=== PATIENT | female | born 1955 | race Caucasian/White ===

== ENCOUNTER 2017-04-25 06:40 | Inpatient (IN) | payer OTHER ==
[2017-04-24 14:01] LABS: BASOPHILS 0.5 %; BASOPHILS ABSOLUTE 0.04 10/3/uL (0.0-0.16); EOSINOPHILS 2.1 %; EOSINOPHILS ABSOLUTE 0.16 10/3/uL (0.0-0.53); HEMATOCRIT 42.1 % (36.0-48.0); HEMOGLOBIN 13.8 g/dL (12.0-16.0); IMMATURE GRANULOCYTES 0.3 %; IMMATURE GRANULOCYTES ABSOLUTE 0.02 10/3/uL (0.0-0.11); LYMPHOCYTES 46.3 %; LYMPHOCYTES ABSOLUTE 3.53 10/3/uL (0.67-4.30); MEAN CORPUS HGB CONC 32.8 g/dL (32.0-36.0); MEAN CORPUSCULAR HEMOGLOB 28.5 pg (26.0-34.0); MEAN PLATELET VOLUME 9.5 fL (9.2-13.0); MONOCYTES 3.3 %; MONOCYTES ABSOLUTE 0.25 10/3/uL (0.21-1.20); NEUTROPHILS 47.5 %; NEUTROPHILS ABSOLUTE 3.62 10/3/uL (2.02-8.40); PLATELET COUNT 394 10/3/uL (150-400); RBC DISTRIBUTION WIDTH 14.4 % (12.0-16.0); RED CELL COUNT 4.84 10/6/uL (4.0-5.6); WHITE BLOOD CELLS 7.6 10/3/uL (4.5-10.5)
[2017-04-24 14:02] LABS: MANUAL DIFF NO %
[2017-04-24 14:16] LABS: ALBUMIN 3.9 G/DL (3.5-5.0); ALKALINE PHOSPHATASE 75 U/L (45-117); BUN (BLOOD UREA NITROGEN) 16 MG/DL (6-23); CALCIUM, SERUM 9.6 MG/DL (8.5-10.4); CHLORIDE, SERUM 104 MMOL/L (96-112); CO2 (CARBON DIOXIDE) 28 MMOL/L (24-34); CREATININE 0.73 MG/DL (0.55-1.02); GFR AFRICAN AMERICAN 104 ML/MIN (>=60); GFR NON AFRICAN AMERICAN 90 ML/MIN (>=60); GLOBULIN 3.8 G/DL (2.5-4.1); GLUCOSE, SERUM 93 MG/DL (60-99); POTASSIUM, SERUM 4.1 MMOL/L (3.5-5.3); SGOT(AST) 19 U/L (5-40); SGPT(ALT) 31 U/L (5-65); SODIUM, SERUM 140 MMOL/L (135-148); TOTAL BILIRUBIN 0.6 MG/DL (0-1.2); TOTAL PROTEIN 7.7 G/DL (6.0-8.5)
--- NOTE | ~2017-04-25 | DS ---
Discharge Summary [facility] [address] [place]. [address] NAME: TOAN BAPTISTE : 57 STATUS : DIS Jossue PAT#: [id number] AGE: 61 ADM/REG DATE : 04/25/17 MR#: [id number] REPORT SERV DATE: 04/28/17 DICTATED BY: FREDERICK NEVAREZ DATE: 04/27/17 REPORT STATUS : Draft TRANSCRIBED BY: MODL DATE: 04/27/17 ADMISSION DATE: 04/25/2017 DISCHARGE DATE: 04/27/2017 DISCHARGE DIAGNOSES: 1. Uterine prolapse, incomplete. 2. Midline cystocele. 3. Rectocele. 4. Stress urinary incontinence. OPERATIVE PROCEDURES: 1. Laparoscopic-assisted vaginal hysterectomy with bilateral salpingo-oophorectomy, anterior repair and posterior repair. 2. Midurethral sling (Advantage Fit sling). 3. Cystoscopy. COMPLICATIONS: Postoperative urinary retention, resolved. SUMMARY OF HOSPITAL COURSE: This is a 61-year-old white female with symptomatic cystocele and uterine prolapse. She also had mild stress incontinence symptoms which were likely to worsen with correction of the prolapse, therefore a sling was thought to be indicated. She also had a rectocele. On the day of admission, she underwent laparoscopic-assisted vaginal hysterectomy with bilateral salpingo-oophorectomy, followed by an anterior and posterior repair with placement of an Advantage Fit midurethral sling. Cystoscopy was done at the conclusion to procedure. There were no complications operatively. Postoperatively, the patient was stable in the first 24 hours. Hematocrit on the first postoperative day was 32%, bowel sounds were stable, urine output was excellent, and the patient was tolerating liquids and able to ambulate. When the catheter was removed, however, the patient was unable to void, and after voiding in catheterization with an in-and-out catheter determined she had high volumes of urine, a decision was made to replace her folly catheter. Since the patient had urinary retention requiring a Otero and did not wish to go home with indwelling Otero, she was kept for an additional 24 hours in the hospital. During that time, her diet was advanced to regular diet, she was ambulated extensively. She was given a trial without her catheter the next day, and on the postoperative day #2, she was able to void, but initially had high residual urine on in and out catheterization. By the end of the day, the patient was voiding with a residual of only around 100 mL, therefore we deemed her to have a satisfactory resolution of her urinary retention and did not reinsert a Otero, but made plans to discharge her home to be followed up in the office in about 4 days. She is given the warnings to come in should she has signs or symptoms of urinary retention. CONDITION AT DISCHARGE: Good. MEDICATIONS ON DISCHARGE: The patient will continue her usual home meds. For pain, she was given Anaprox-DS to take one q.8 hours for pain #15 and Lortab 5/325 one to two p.o. q.4 hours p.r.n. for pain, #30. In addition, she will take ferrous sulfate 325 mg b.i.d. for 30 days. She will also take Colace 100 mg twice a day or MiraLax once a day to prevent Discharge Summary [address] [address] NAME: TOAN BAPTISTE : 57 STATUS : DIS oJssue PAT#: [id number] AGE: 61 ADM/REG DATE : 04/25/17 MR#: [id number] REPORT SERV DATE: 04/28/17 DICTATED BY: FREDERICK NEVAREZ DATE: 04/27/17 REPORT STATUS : Draft TRANSCRIBED BY: LANETTE DATE: 04/27/17 constipation, and finally, she was the given the prescription for Zofran 8 mg to take one q.12 hours p.r.n. for nausea. DICTATED BY: MD KHRIS Galeas/LANETTE Frederick Nevarez MD / [id number] CC: MD Tray aGleas Jr., D.O.
--- NOTE | ~2017-04-25 | OP ---
Record Of Operation [facility] [address] [place]. [address] NAME: TOAN BAPTISTE : 57 STATUS : ADM IN PAT#: [id number] AGE: 61 ADM/REG DATE : 04/25/17 MR#: [id number] REPORT SERV DATE: 04/25/17 DICTATED BY: FREDERICK NEVAREZ DATE: 04/25/17 REPORT STATUS : Draft TRANSCRIBED BY: MODL DATE: 04/25/17 DATE OF PROCEDURE: 04/25/2017 PROCEDURES: 1. Laparoscopic-assisted vaginal hysterectomy and bilateral salpingo-oophorectomy. 2. Anterior colporrhaphy. 3. Posterior colporrhaphy. 4. Insertion of a midurethral sling. 5. Cystoscopy. PREOPERATIVE DIAGNOSES: 1. Uterine prolapse. 2. Midline cystocele. 3. Rectocele. 4. Stress urinary incontinence. POSTOPERATIVE DIAGNOSES: 1. Uterine prolapse. 2. Midline cystocele. 3. Rectocele. 4. Stress urinary incontinence. SURGEON: Frederick Nevarez M.D. ANESTHESIA: General anesthetic. FINDINGS: Under anesthesia, the patient had a grade 3 uterine prolapse with cervix at the introitus. There was grade 3 midline cystocele and grade 2 rectocele. At the time of laparoscopy, the uterus, tubes, and ovaries were essentially normal in appearance. At cystoscopy, no focal bladder lesions were seen. DESCRIPTION OF PROCEDURE: The patient was placed on the operating table in the supine position. After satisfactory general anesthesia, the patient was placed in the lithotomy in the [place] [place] [employer]. The abdomen was prepped after which the vagina and perineum were prepped and the patient was draped. I placed a MARIPOSA uterine manipulator on the uterus. The uterus sounded to 7 cm, therefore a 6-cm long intrauterine balloon catheter was chosen and the medium size MARIPOSA ring was chosen. Once the instrument was assembled, the MARIPOSA ring was sutured to the cervix at the 10 o'clock and 2 o'clock position with 0 Vicryl stitch and the balloon was inflated. Following this Otero catheter was placed in the bladder. After putting new the sterile gloves, then went to the bedside. A vertical incision was made in the inferior border of the umbilicus. Through this skin incision a Veress needle was placed into the abdominal cavity while the patient was in Trendelenburg position. After checking for proper positioning, the various needle was removed after insufflating the abdomen with 2.5 L of carbon-dioxide gas. A 5 mm disposable trocar was inserted through the umbilicus into the abdominal cavity without incident. The laparoscope was then inserted. Two additional 5 mm trocars were inserted under direct visualization. These were placed Record Of Operation [facility] [id number] [place]. [address] NAME: TOAN BAPTISTE : 57 STATUS : ADM IN PAT#: [id number] AGE: 61 ADM/REG DATE : 04/25/17 MR#: [id number] REPORT SERV DATE: 04/25/17 DICTATED BY: FREDERICK NEVAREZ DATE: 04/25/17 REPORT STATUS : Draft TRANSCRIBED BY: LANETTE DATE: 04/25/17 approximately 10 mm to the right into the left of the midline in the lower quadrants of the abdomen below the level of the umbilicus. After placement of these trocars, I was then ready to begin the procedure. A LigaSure 5 mm blunt tip instrument was used to perform desiccation of vascular pedicles and perform the laparoscopic portion of the hysterectomy. The pelvis was surveyed and the position of the ureters identified and traced. Following this beginning on the right side the infundibulopelvic ligament was desiccated with LigaSure and divided and the broad ligament then opened anteriorly and posteriorly. The round ligament was desiccated and divided on the right and the anterior lips of broad ligament incised down over the bladder reflection. A vascular tissues were desiccated and divided and uterine artery pedicle skeletonized on the right. Attention was then turned to left side where the exact same steps were performed on the left desiccating and diving the infundibulopelvic ligament pedicle followed by opening broad ligament further desiccating and dividing the round ligament and incising the anterior peritoneum over the bladder reflection. The uterine artery pedicle was skeletonized as usual. Following this, the uterine artery pedicle was desiccate and divided on both sides. The bladder flap was now advanced off the cervix and the MARIPOSA ring could be palpated. One additional pedicle was desiccated and divided being the upper portion of the cardinal ligament complex on both sides of the cervix. Hemostasis was excellent. At this time, all the laparoscopic instruments removed. The gas was allowed to escape and the trocar sleeves left in place. We then repositioned the patient for vaginal surgery. The MARIPOSA device was removed. A tenaculum was placed on the anterior lip of the cervix and on the posterior lip of the cervix. 0.25% Marcaine with epinephrine was then infiltrated submucosally posteriorly, anteriorly, and laterally on the cervix. The posterior cul-de-sac was then entered with Mak scissors and excoriated with finger tip. The non-weighted speculum was then inserted posteriorly. Turning anteriorly a transverse incision was made on the anterior lip of the cervix at the bladder reflection and dissecting in the preoperative plane, the peritoneal cavity was entered and a right-angled retractor inserted into the peritoneal cavity anteriorly. The mucosal incisions on each side of the cervix were then connected using an incision with scalpel. Following this curved Abhijit clamps were used to clamp the uterosacral ligaments on each side and these pedicles were clamped, divided with scissors and ligated in hanging fashion with 0 Vicryl which was held with hemostats. The cardinal ligament complex was then taken on each side with curved Abhijit clamps comprising the anterior and posterior peritoneum. These pedicles were incised and then ligated in hanging fashion with 0 Vicryl. Two additional bites with curved Abhijit clamps required on both sides of the cervix to get all of the remaining attachments. These pedicles were ligated in the same fashion with 0 Vicryl suture. The uterus with both ovaries and tubes were then removed from the patient's abdomen and passed off the table. All pedicles were inspected. Uterosacral ligament pedicle was then fixed laterally to the each angle of the vagina using 0 Vicryl suture. Following this, the vaginal cuff was closed with multiple interrupted [id number] sutures and 0 Vicryl. Prior to closure of vaginal cuff, the anterior colporrhaphy was performed. This was then in the following manner. Allis clamps were placed on the mucosal edges of the anterior vaginal wall for traction and counter-traction. 0.25% Marcaine with epinephrine was infiltrated submucosally in the midline. Metzenbaum scissors were then used to undermine the anterior vaginal mucosa in the midline from the vaginal apex all the way to the junction of the bladder and urethra. The mucosa was incised in the midline and reflected off the underlying bladder using sharp dissection. Once this had been laterally mobilized, an anterior colporrhaphy was performed in traditional fashion Record Of Operation [facility] [address] [place]. [address] NAME: TOAN BAPTISTE : 57 STATUS : ADM IN PAT#: [id number] AGE: 61 ADM/REG DATE : 04/25/17 MR#: [id number] REPORT SERV DATE: 04/25/17 DICTATED BY: FREDERICK NEVAREZ DATE: 04/25/17 REPORT STATUS : Draft TRANSCRIBED BY: LANETTE DATE: 04/25/17 using interrupted 2-0 Vicryl sutures beginning at the ureterovesical junction and proceeding back toward the vaginal apex. Once the anterior repair had been completed, excess vaginal mucosa was trimmed, then anterior vaginal mucosa was closed with running 3-0 Vicryl suture. At this point, the vaginal cuff was actually closed. Turning posteriorly, the perineal body and the mucosa along the posterior vaginal wall was infiltrated with 0.25% Marcaine with epi. A vertical incision was made in the perineal body due to some old scar tissue and using Allis clamps for traction and counter traction, the posterior vaginal mucosa was undermined in the midline and then trapped in the midline from the introitus all the way to vaginal apex. The posterior vaginal mucosa was reflected off the rectocele far laterally on the right and the left with sharp dissection. One brisk bleeding vessel was encountered on the patient's left side which required suture ligation with 3-0 Vicryl. The posterior colporrhaphy was then performed with interrupted sutures of 2-0 Vicryl beginning at the vaginal apex with interrupted sutures and continuing all the away to the introitus repairing the posterior wall defect in traditional fashion. The perineal body was then repaired with several interrupted sutures of 2-0 Vicryl. The posterior vaginal mucosa was repaired with running 3-0 Vicryl suture and the perineal skin was approximated using running subcuticular 3-0 Vicryl which was tied to the 3-0 Vicryl stitch to complete the procedure. Vaginal packing was obtained, but not placed at this time. Attention was then turned to the sling. A mucosal incision about 1.5 cm long was made over the midurethral section of the urethra. Using scissors, a plane was developed on each side of the urethra for placement of the sling. An Advantage Fit sling kit was obtained. A trocar was passed on the patient's left side from a vaginal incision retropubically and exited through a small stab wound suprapubically. The trocar was then placed on the patient's right side and the sling material taken up behind the symphysis pubis all the way to the abdominal wall and again exited through a small stab incision. The guides were left in place. All the Otero catheters were removed and cystoscopy was performed demonstrating a normal-appearing bladder with no injury. Following this, the Otero catheter was reinserted and the sling was then pulled up into proper position. The sling sheath was then cut and the sheath pulled off the sling while holding an instrument between the urethra and the sling material, so it would be place without tension. Once sling material was placed in the proper position without tension, the excess material sticking above the abdominal wounds was excised. The mucosal defect of the midurethra was then closed with a running 3-0 Vicryl. A vaginal packing was then placed. At this time, put on the new gloves and went to bedside where the abdomen the abdomen was insufflated, and all the pedicles checked. Irrigation was performed to clear hemostasis with all pedicles perfect. The instruments were then removed from the abdominal cavity, the gas was allowed to escape, and all trocar sleeves were removed. The skin at the trocar incision sites was closed with interrupted subcuticular 4-0 Vicryl. The suprapubic incisions where sling had been placed were also closed with interrupted subcuticular 4-0 Vicryl. Steri-Strips were applied followed by Telfa and Tegaderm. The patient was then returned to supine position. Sponge and needle counts were correct. Vaginal packing was left in place. The Otero was draining clear urine. The estimated blood loss was 300 mL. The patient was awakened from general anesthesia and transferred to recovery in good condition. [facility] Record Of Operation [address] [address] NAME: TOAN BAPTISTE : 57 STATUS : ADM IN [facility]#: [id number] AGE: 61 ADM/REG DATE : 04/25/17 MR#: [id number] REPORT SERV DATE: 04/25/17 DICTATED BY: FREDERICK NEVAREZ DATE: 06/13/17 REPORT STATUS : Draft TRANSCRIBED BY: MODL DATE: 04/25/17 Frederick Nevarez MD / [id number] CC: MD Tray Galeas Jr., D.OVish
[~2017-04-25 06:40] MED LIST: BENICAR HCT1 TA1 PO; KLONO5 PO; LEXAPRO20 PO; PROTONIX PO
[2017-04-26 05:23] LABS: HEMATOCRIT 32.1 % (36.0-48.0); HEMOGLOBIN 10.6 g/dL (12.0-16.0)
[2017-04-27 08:03] LABS: HEMATOCRIT 30.5 % (36.0-48.0); HEMOGLOBIN 9.9 g/dL (12.0-16.0)
[2017-04-27] MEDS ORDERED: T PO (14:39)
[2017-04-27] MEDS ORDERED: DSS PO (16:28)
[2017-04-27] MEDS ORDERED: FERROUS SULF325 M1 PO (16:28)
[2017-04-27] MEDS ORDERED: ZOFRAN8 PO (16:29)
[2017-04-27] MEDS ORDERED: ANADS PO (16:29)
[2017-04-27] MEDS ORDERED: NORCO1 TA1 PO (16:30)
== END 2017-04-27 17:14 | disposition home or self-care (01) | DRG 743 ==
LOC: SDC/OF 06:40 → 4EA 14:14
PROVIDERS: Obstetrics & Gynecology
PROC: 0JQC0ZZ Repair Pelvic Region Subcutaneous Tissue and Fascia, Open Approach (ICD-10-PCS; 2017-04-25)
PROC: 0JQC0ZZ Repair Pelvic Region Subcutaneous Tissue and Fascia, Open Approach (ICD-10-PCS; 2017-04-25)
PROC: 8E0W4CZ Robotic Assisted Procedure of Trunk Region, Percutaneous Endoscopic Approach (ICD-10-PCS; 2017-04-25)
PROC: 0UT9FZZ Resection of Uterus, Via Natural or Artificial Opening With Percutaneous Endoscopic Assistance (ICD-10-PCS; principal; 2017-04-25 08:45)
PROC: 0UT2FZZ Resection of Bilateral Ovaries, Via Natural or Artificial Opening With Percutaneous Endoscopic Assistance (ICD-10-PCS; 2017-04-25 08:45)
PROC: 0UT7FZZ Resection of Bilateral Fallopian Tubes, Via Natural or Artificial Opening With Percutaneous Endoscopic Assistance (ICD-10-PCS; 2017-04-25 08:45)
DX: N81.2 Incomplete uterovaginal prolapse (principal)
CPT/HCPCS: 36415; 80053; 82962; 85014; 85018; 85025; 86850; 86900; 86901; 88305; 88307; 93005; A9270-GY; C1771; J0330; J0694; J1170; J1885; J2250; J2405; J2710; J3010